=== PATIENT | female | born 1945 | race Caucasian/White ===

== ENCOUNTER → 2022-11-10 13:09 | Outpatient (BNVA) | payer MEDICARE, OTHER, SELFPAY | PROVIDERS: Referring Provider Internal Medicine; Visit Provider Specialist | DX: G30.9 Alzheimer's disease, unspecified (principal); F02.80 Dementia in other diseases classified elsewhere, unspecified severity, without behavioral disturbance, psychotic disturbance, mood disturbance, and anxiety; Z79.01 Long term (current) use of anticoagulants; Z87.820 Personal history of traumatic brain injury | CPT/HCPCS: 36415; 82607; 96116; 99205 ==